=== PATIENT | female | born 1985 | race Caucasian/White ===

== ENCOUNTER 2018-12-25 09:19 | Outpatient (REF) | payer BC, SELFPAY ==
--- NOTE | 2018-12-25 08:30 | PAPFT_PTH ---
PATIENT: Candice Hollis LOC: [facility] U#:[id number] AGE/SX: 33/F ROOM: RE12/25/[address]: GILMA Stewart : 1985 BED: DIS: 12/25/2018 SPEC #: [id number] RECD: 12/25/18 12:24 STATUS: TATI RESantiago #: [id number] RADHA: 12/25/18 08:[address]: Laney Duque DEPT: [facility] Cytology RECD BY: Denisse Rick ENTERED: 12/25/18 12:24 SP TYPE: PAPFT OTHR DR: Jeremiah Hawkins Tissues: 1 - CX/ENDOCX FOR PAP SMEARS Procedures: PAP THIN PREP/UVM Screening HPV DNA PROBE Comments: [id number]
== END 2018-12-25 09:39 ==
LOC: LBN 09:19
PROVIDERS: PCP Internal Medicine; Visit Provider Nurse Practitioner Family
DX: Z12.4 Encounter for screening for malignant neoplasm of cervix (principal); Z11.51 Encounter for screening for human papillomavirus (HPV)
CPT/HCPCS: 88142; 87624

== ENCOUNTER 2019-07-17 17:22 | Outpatient (REF) | payer BC, SELFPAY ==
[2019-07-18 14:54] LABS: Chlamydia Result Negative (Negative); GC Result Negative (Negative); Specimen Description CERVIX
== END 2019-07-17 17:42 ==
LOC: LBN 17:22
PROVIDERS: PCP Internal Medicine; Visit Provider Nurse Practitioner Women's Health
DX: Z11.3 Encounter for screening for infections with a predominantly sexual mode of transmission (principal)
CPT/HCPCS: 87491; 87591

== ENCOUNTER 2021-04-23 14:35 | Emergency (ER) | payer BC, SELFPAY ==
--- NOTE | 2021-04-23 15:15 | DI.RAD_ITS ---
Exam(s) XR FINGER RT INDEX EXAM: XR FINGER RT INDEX CLINICAL HISTORY: contusion tip of finger, r/o fx. TECHNIQUE: 2D digital imaging was performed. COMPARISON: No exams were available for comparison FINDINGS: There is no evidence of fracture or dislocation. No radiopaque foreign body. No osseous lesions nor erosions. IMPRESSION: No significant radiographic findings. DATA REPOSITORY: RADIATION DOSE DELIVERED:
[2021-04-23 15:17] VITALS: BP 113/72; PULSE 99; RESP 16; TEMP 37.2; O2SAT 96
--- NOTE | 2021-04-23 15:17 | ED.GENADUL_ITS ---
Discharge Plan Disposition Patient Disposition: HOME Condition: Stable Discharge Details Clinical Impression: Contusion of finger Primary Care Provider: Jeremiah Hawkins ED Provider: Alvina Dobson Home Meds and New Rx's Prescriptions: Continued Mirena 20 mcg/24 hours (5 yrs) 52 mg intrauterine device 1 device IY ONCE RF: 0 dextroamphetamine-amphetamine [Adderall XR] 25 mg Capsule,Extended Release 24h r 25 mg PO DAILY RF: 0 Discharge Instructions Instructions: Contusion in Adults (ED) Additional Instructions: Your x-ray was negative for fracture. A finger bruise or fracture can be treated the same with a finger splint to help protect it and help with swelling and pain. Alternate tylenol and motrin as needed and directed for pain. Follow-up with your primary care doctor in 1 week as needed and for referral to orthopedics if your symptoms do not improve or worsen. Return to the emergency department with any worsening or new concerning symptoms. Referrals: Alek Davis MD [ [facility] STAFF PHYSICIAN] - Discharge Data Discharge Date/Time-TO BE ENTERED AT DEPARTURE: 04/23/21 16:13 Discharge Physician: Alvina Dobson Medical Decision Making 36-year-old female presents with injury to the tip of her right second finger after attempting to catch a softball last night. There is a contusion and hematoma noted to the right second finger pad as well as a minimal subungual hematoma. There is no deformity. Patient referred for x-rays which were negative. Offered to perform electrocautery to the nail but patient declined. This is reasonable as the subconjunctival hematoma is minimal. Aluminum finger splint was applied. She was given orthopedic follow-up information if needed. Usual and customary return precautions given prior to discharge. Medical Records Medical records reviewed: Yes I reviewed the patient's medical records. Imaging Data Radiologic Study: Radiologist's impression: XR FINGER RT INDEX CLINICAL HISTORY: contusion tip of finger, r/o fx. TECHNIQUE: 2D digital imaging was performed. COMPARISON: No exams were available for comparison FINDINGS: There is no evidence of fracture or dislocation. No radiopaque foreign body. No osseous lesions nor erosions. IMPRESSION: No significant radiographic findings. Lab Data Lab results reviewed: Yes I reviewed the patient's lab results. HPI General Mode of arrival: ambulatory . Date/Time Provider Initiated Documentation: 04/23/21 15:07 . Limitations to Documentation: no limitations . Information obtained by: patient . HPI Narrative: Patient is a 36-year-old female who presents with right second finger injury after jammed on a softball while playing last night. She was standing on the field attempting to catch a ball when the ball directly jammed into the tip of her right second finger. She has been taking medication for pain. She denies any other injury Related Data Home Medications Medication Instructions Recorded Confirmed levonorgestrel 20 mcg/24 hours (6 1 device IY ONCE 12/25/18 07/31/19 yrs) 52 mg intrauterine device dextroamphetamine-amphetamine 25 mg PO DAILY 04/23/21 04/23/21 [Adderall XR] Allergies Allergy/AdvReac Type Severity Reaction Status Date / Time No Known Drug Allergies Allergy Verified 04/23/21 15:21 Review of Systems All systems reviewed & are unremarkable except as noted in HPI and below PFSH Medical History (Updated 04/23/21 @ 16:09 by Alvina Dobson DO) Acne facial IUD surveillance Surgical History (Updated 07/26/18 @ 14:35 [facility] section 2013 Family History Father Hypertension Maternal Grandmother Lung cancer Paternal Grandmother Breast cancer Other Personal history of malignant neoplasm Social History Smoking/Tobacco Use Status: Former Tobacco Use Smoking risk assessment performed?: Yes Alcohol Intake: current Alcohol Intake frequency: a few times a month Substance use type: does not use Female Reproductive History Menstrual control method: progestin IUCD History History 2 Para 1 Hx # Term Pregnancies Multiple births Hx # Pregnancies Ectopic pregnancies AB induced Hx Number of Living Children AB spontaneous Exam Const General: cooperative, healthy appearing and no acute distress HENMT Head: normal to inspection Mouth: oral mucosae normal Eyes General: appearance normal, both eyes and all related structures Neck Neck: normal visual inspection Resp Effort & Inspection: normal respiratory effort and able to speak in complete sentences Cardio Rate: regular rate Skin General skin exam: no rashes or lesions noted Neuro General: patient alert, patient awake and patient oriented x3 Motor: muscle tone normal throughout Extrem Hand/finger images: 1. Mild to moderate edema and ecchymosis noted to the distal finger. There is minimal subungual hematoma. There is no deformity noted. Limited range of motion at DIP due to pain and swelling. Psych Appearance: grossly normal Affect: normal affect Procedures Orthopedic Splinting/Casting Injury #1: Side: right Upper Extremity Injury Location: finger Upper Extremity Immobilizer: finger (other)
== END 2021-04-23 16:13 | disposition home or self-care (01) ==
PROVIDERS: Emergency Provider Physician Assistant; PCP Internal Medicine
DX: S60.021A Contusion of right index finger without damage to nail, initial encounter (principal); W21.07XA Struck by softball, initial encounter
CPT/HCPCS: 29130; 99283; 73140

== ENCOUNTER 2021-05-01 16:15 | Outpatient (REF) | payer BC, SELFPAY ==
[2021-05-03 10:36] LABS: COVID-19 RT-PCR UVMMC Result Negative (Negative)
== END 2021-05-01 16:16 | disposition home or self-care (01) ==
LOC: LBN 16:15
PROVIDERS: PCP Internal Medicine; Visit Provider Physician Assistant Medical
DX: Z20.822 Contact with and (suspected) exposure to COVID-19 (principal); R05 Cough; R09.81 Nasal congestion
CPT/HCPCS: U0003

== ENCOUNTER 2021-08-13 22:19 | Emergency (ER) | payer BC, SELFPAY ==
[2021-08-13] VITALS (58 sets, daily range): BP systolic 109–123; BP diastolic 64–80; PULSE 80–108; RESP 14–23; TEMP 37; O2SAT 98–100
--- NOTE | 2021-08-13 22:15 | RT.EKG_ITS ---
APPROVED REPORT Exam: Resting ECG Reason for Exam: chest pain Patient Location: E HR:85 bpm ECG Measurements Heart Rate 85 AXIS NJ 153 P 79 QRSd 66 QRS 62 QT 360 T 56 QTc 428 Conclusion Sinus rhythm...normal P axis, V-rate 60- 99 Probable left atrial enlargement...P >50mS, <-0.10mV V1 Normal Spring I have reviewed and interpreted ECG and agree with software generated interpretation.
--- NOTE | 2021-08-13 22:30 | DI.RAD_ITS ---
Exam(s) XR CHEST 2V PA LATERAL EXAM: XR CHEST 2V PA LATERAL CLINICAL HISTORY: Chest pain TECHNIQUE: 2D digital imaging was performed. COMPARISON: No exams were available for comparison FINDINGS: MEDIASTINUM: Normal. HEART: Normal. PULMONARY VASCULATURE: Normal. LUNGS: Clear. PLEURAL SPACE: No pleural effusion or pneumothorax. BONE:Unremarkable for age. IMPRESSION: No acute abnormality. DATA REPOSITORY: RADIATION DOSE DELIVERED:
--- NOTE | 2021-08-13 22:49 | ED.GENADUL_ITS ---
Discharge Plan Disposition Patient Disposition: HOME Condition: Stable Discharge Details Clinical Impression: Left-sided chest wall pain Primary Care Provider: Jeremiah Hawkins ED Provider: Ana Abbott Home Meds and New Rx's Prescriptions: No Action Mirena 20 mcg/24 hours (5 yrs) 52 mg intrauterine device 1 device IY ONCE RF: 0 Flonase Sensimist 27.5 mcg/actuation spray,suspension 1 spray intranasal BID RF: 0 cetirizine [Zyrtec] 10 mg tablet 10 mg PO DAILY PRNRF: 0 dextroamphetamine-amphetamine [Adderall XR] 25 mg Capsule,Extended Release 24hr 25 mg PO DAILY RF: 0 Discharge Instructions Instructions: Chest Wall Pain (ED) Additional Instructions: At this time cardiac work-up including EKG, troponin, chest x-ray are all within normal limits. The D-dimer which is lab test we checked for blood clots was also within normal limits. Please take Tylenol or Ibuprofen with food every 4-6 hours as needed for pain and swelling. Follow up with primary care provider in 3-5 days. Return to ED sooner if any worsening or concerns. Increase oral fluids. Referrals: Jeremiah Hawkins MD [Primary Care Provider] - 5 days Discharge Data Discharge Date/Time-TO BE ENTERED AT DEPARTURE: 08/14/21 00:37 Medical Decision Making 36-year-old female presents to the ER with chief complaint of intermittent sharp stabbing left-sided chest pain. She reports first episode began approximately 2 weeks ago which lasted 30 seconds. She reports a dull pain into the left side of chest in between episodes. She reports tonight while she was laying down had an episode lasting approximately 30 minutes. She does report some increased pain with movement, denies any shortness of breath, cough, nausea vomiting diarrhea or any other associated symptoms. She denies any recent long trips in a car plane. She does have an IUD. She does endorse occasional social alcohol use, non-smoker no drugs. She has a past medical history of ADD, family history of lung cancer breast cancer. She denies any cardiac history or family cardiac history. Cardiac work-up including troponin, CBC, CMP, D-dimer, chest x-ray. Patient given 324 mg aspirin p.o. upon arrival. Initial work-up shows no leukocytosis, CMP largely within normal limits, initial troponin less than 0.05. I do suspect pleuritic type chest pain or musculoskeletal in origin. Patient is low risk for cardiac disease, PE ruled out with D-dimer. Chest x-ray at this time shows no evidence for pneumonia or pneumothorax. Imaging protocol: XR of the chest. Views: 2 views. COMPARISON: No relevant prior studies available. FINDINGS: Lungs: Mild chronic interstitial prominence. No consolidation. Pleural spaces: Unremarkable. No pleural effusion. No pneumothorax. Heart/Mediastinum: Unremarkable. No cardiomegaly. Bones/joints: Unremarkable. Nonspecific fluid level in the upper/mid abdomen may be within the distal stomach IMPRESSION: No acute findings. Thank you for allowing us to participate in the care of your patient. Dictated and Authenticated by: Won Shaver MD Discussed results with patient and family who verbalized understanding. Discussed return instructions. Surgeon to follow-up with PCP in the next 3 to 5 days. Insert dragon HPI General Mode of arrival: ambulatory . Date/Time Provider Initiated Documentation: 08/13/21 22:26 . Limitations to Documentation: no limitations . Information obtained by: patient, RN notes reviewed and old records reviewed . HPI Narrative: 36-year-old female presents to the ER with chief complaint of intermittent sharp stabbing left-sided chest pain. She reports first episode began approximately 2 weeks ago which lasted 30 seconds. She reports a dull pain into the left side of chest in between episodes. She reports tonight while she was laying down had an episode lasting approximately 30 minutes. She does report some increased pain with movement, denies any shortness of breath, cough, nausea vomiting diarrhea or any other associated symptoms. She denies any recent long trips in a car plane. She does have an IUD. She does endorse occasional social alcohol use, non-smoker no drugs. She has a past medical history of ADD, family history of lung cancer breast cancer. She denies any cardiac history or family cardiac history. Related Data Home Medications Medication Instructions Recorded Confirmed levonorgestrel 20 mcg/24 hours (7 1 device IY ONCE 12/25/18 07/02/21 yrs) 52 mg intrauterine device dextroamphetamine-amphetamine 25 mg PO DAILY 04/23/21 07/02/21 [Adderall XR] cetirizine 10 mg tablet 10 mg PO DAILY PRN 06/15/21 07/02/21 fluticasone furoate 27.5 1 spray INTRANASAL BID ml 06/15/21 mcg/actuation nasal spray,suspension Allergies Allergy/AdvReac Type Severity Reaction Status Date / Time No Known Drug Allergies Allergy Verified 07/02/21 14:33 General Stated Complaint: Chest Pain SALLY: 2 Review of Systems All systems reviewed & are unremarkable except as noted in HPI and below Cardiovascular Cardiovascular: Denies acrocyanosis, Reports chest pain, Reports chest pain at rest, Reports rapid heart rate, Denies pedal edema, Denies leg edema, Denies radiating jaw, neck or arm pain, Denies dyspnea and Denies dyspnea on exertion Respiratory Respiratory: Denies dyspnea and Denies dyspnea on exertion Gastrointestinal Gastrointestinal: Denies diarrhea, Denies nausea and Denies vomiting ON LICENSE OF [facility] Medical History Acne facial Attention deficit disorder (ADD) in adult Frequent sinus infections IUD surveillance Surgical History section 2013 Family History Father Hypertension Maternal Grandmother Lung cancer Paternal Grandmother Breast cancer Colon cancer Maternal Grandfather Prostate cancer Other Personal history of malignant neoplasm Social History Smoking/Tobacco Use Status: Never Smoking risk assessment performed?: Yes Alcohol Intake: current Alcohol Intake frequency: a few times a week Drug use: Never Substance use type: does not use Do you feel safe at home: Yes Do you feel safe in your relationship?: Yes Female Reproductive History Menstrual control method: progestin IUCD History History 2 Para 1 Hx # Term Pregnancies Multiple births Hx # Pregnancies Ectopic pregnancies AB induced Hx Number of Living Children AB spontaneous Exam Narrative Exam Narrative: Constitutional: Alert and oriented x3. Appears stated age. Normal body habitus. Head: Normocephalic, no trauma. Eyes: Pupils PERRL, Red reflex noted, EOM's intact. Eyelids symmetrical without lesions, discharge, or swelling. ENT: Bilateral TM's WNL, External ear normal to inspection, no mastoid TTP, swelling, or erythema, Nasal turbinates WNL, no nasal discharge. Normal dentition, Posterior pharynx WNL, no exudate. Chest: RRR, Normal S1, S2, distal pulses intact. Resp: Lungs clear to auscultation bilaterally, no wheezes, rales, or rhonchi. Abdomen: Soft, non-distended, Normoactive bowel sounds all 4 quads. Musculoskeletal: Normal gait, 5/5 strength to all four extremities. Skin: No suspicious rashes or lesions. Capillary refill less than 2 sec. Neurologic: Cranial nerves II-XII intact. Alert and oriented x 3. Motor: No deficits noted. Sensory: Intact bilaterally all 4 extremities. Reflexes: DTR's intact bilaterally.. Hematologic/Lymphatic: No ecchymosis, no lymphadenopathy. Course Vital Signs Vital signs: Vital Signs Temperature 37 C 08/13/21 22:24 Pulse 80 08/13/21 22:24 Respiratory Rate 18 08/13/21 22:24 Blood Pressure 121/76 08/13/21 22:24 Pulse Oximetry 98 08/13/21 22:24 Temperature 37 C 08/13/21 22:24 Temperature Source Tympanic 08/13/21 22:24 Pulse 80 08/13/21 22:24 Respiratory Rate 18 08/13/21 22:28 Respiratory Effort 08/13/21 22:28 Respiratory Depth Normal 08/13/21 22:28 Respiratory Pattern Normal 08/13/21 22:28 Blood Pressure 121/76 08/13/21 22:24 Blood Pressure Position Sitting 08/13/21 22:24 Pulse Oximetry 98 08/13/21 22:24 Oxygen Delivery Method Room Air 08/13/21 22:24 Oxygen Flow Rate 0 08/13/21 22:24
[2021-08-13 23:06] LABS: Abs Immature Grans 0.01 10^3/uL (0.0-0.06); Absolute Basophil Count 0.04 10^3/uL (0.0-0.2); Absolute Eosinophil Count 0.05 10^3/uL (0.0-0.7); Absolute Lymphocyte Count 3.05 10^3/uL (1.2-3.4); Absolute Monocyte Count 0.57 10^3/uL (0.1-0.8); Absolute Neutrophil Count 3.47 10^3/uL (1.2-6.7); Basophils % 0.6; Eosinophils % 0.7; HCT 43.9 % (36.0-46.0); HGB 14.3 g/dL (11.2-15.7); Immature Grans % 0.1; Lymphocytes % 42.4; MCH 29.3 pg (27.0-33.0); MCHC 32.6 % (32.0-36.0); MPV 9.7 fL (8.0-11.0); Monocytes % 7.9; Neutrophils % 48.3; Nucleated RBC 0 %; Platelet Count 288 10^3/uL (130-400); RBC 4.88 10^6/uL (3.93-5.22); RDW 11.9 % (11.7-14.6); RDW-SD 39.5 fL; WBC 7.19 10^3/uL (4.4-10.8)
[2021-08-13] MEDS: Aspirin 81 MG CHEW 324 MG CH (23:08)
[2021-08-13 23:23] LABS: ALT 16 U/L (14-59); AST 8 U/L (15-37); Albumin 3.9 g/dL (3.4-5.0); Alkaline Phosphatase 51 U/L (46-116); Anion Gap 7.5 mmol/L (3-11); BUN 15 mg/dL (7-18); Bilirubin, Total 0.4 mg/dL (0.2-1.0); CO2 28.5 mmol/L (21.0-32.0); Calcium 8.8 mg/dL (8.5-10.1); Chloride 105 mmol/L (98-107); Glucose 103 mg/dL (74-106); Magnesium 2.4 mg/dL (1.8-2.4); Potassium 3.7 mmol/L (3.5-5.1); Sodium 141 mmol/L (136-145); Total Protein 6.7 g/dL (6.4-8.2)
[2021-08-13 23:36] LABS: D-Dimer 180 ng/mlFEU (<500)
[2021-08-13 23:45] LABS: Troponin I < 0.05 ng/mL (<0.06)
[2021-08-14] MEDS: Ketorolac 30 MG/ML VIAL IVP (00:11)
[2021-08-14 00:13] VITALS: PULSE 80; RESP 17; O2SAT 100
[2021-08-14 00:20] VITALS: PULSE 84; RESP 18; O2SAT 98
--- NOTE | 2021-08-14 00:22 | DI.VRAD_ITS ---
PROCEDURE INFORMATION: Exam: XR Chest Exam date and time: 08/13/2021 10:42 PM Age: 36 years old Clinical indication: Other: Cp TECHNIQUE: Imaging protocol: XR of the chest. Views: 2 views. COMPARISON: No relevant prior studies available. FINDINGS: Lungs: Mild chronic interstitial prominence. No consolidation. Pleural spaces: Unremarkable. No pleural effusion. No pneumothorax. Heart/Mediastinum: Unremarkable. No cardiomegaly. Bones/joints: Unremarkable. Nonspecific fluid level in the upper/mid abdomen may be within the distal stomach IMPRESSION: No acute findings. Dictated and Authenticated by: Won Shaver MD. Ordering:IVÁN Perez MD
== END 2021-08-14 00:37 | disposition home or self-care (01) ==
PROVIDERS: Emergency Provider Registered Nurse Emergency; PCP Internal Medicine
DX: R07.82 Intercostal pain (principal)
CPT/HCPCS: 36415; 80053; 81025; 93005; 96374; 99285; 71046; 83735; 84484; 85025; 85379; 93010; J1885

== ENCOUNTER 2023-07-11 13:16 | Outpatient (REF) | payer BC, SELFPAY ==
--- NOTE | 2023-07-11 13:00 | PAPFT_PTH ---
PATIENT: Candice Hollis LOC: [facility] U#:[id number] AGE/SX: 38/F ROOM: RE07/11/[address]: Margo Tse NP : 1985 BED: DIS: 07/11/2023 SPEC #: [id number] RECD: 07/11/23 18:21 STATUS: TATI RESantiago #: [id number] RADHA: 07/11/23 13:[address]: Dedrick LEAL,Margo DEPT: [facility] Cytology RECD BY: Vesta Wells ENTERED: 07/11/23 18:22 SP TYPE: PAPFT OTHR DR: Jeremiah Hawkins Tissues: 1 - CX/ENDOCX FOR PAP SMEARS Procedures: PAP THIN PREP/UVM Screening HPV DNA PROBE Comments: [id number]
== END 2023-07-11 13:17 | disposition home or self-care (01) ==
LOC: LBN 13:16
PROVIDERS: PCP Internal Medicine; Visit Provider Nurse Practitioner Women's Health
DX: Z12.4 Encounter for screening for malignant neoplasm of cervix (principal); Z11.51 Encounter for screening for human papillomavirus (HPV)
CPT/HCPCS: 88142; 87624

== ENCOUNTER 2024-05-08 15:51 | Outpatient (REF) | payer BC, SELFPAY ==
[2024-05-09 12:50] LABS: Chlamydia Result Negative (Negative); GC Result Negative (Negative)
== END 2024-05-08 15:52 | disposition home or self-care (01) ==
LOC: LBN 15:51
PROVIDERS: PCP Internal Medicine; Visit Provider Nurse Practitioner Women's Health
DX: N76.0 Acute vaginitis (principal); Z11.3 Encounter for screening for infections with a predominantly sexual mode of transmission
CPT/HCPCS: 87491; 87591; 87480; 87510; 87660

== ENCOUNTER 2024-06-08 21:34 | Emergency (ER) | payer BC, SELFPAY ==
[2024-06-08 21:36] VITALS: BP 140/75; PULSE 80; RESP 18; TEMP 36.5; O2SAT 100
--- NOTE | 2024-06-08 21:48 | ED.GENADUL_ITS ---
Discharge Plan Disposition Patient Disposition: Home Condition: Stable Discharge Details Clinical Impression: Strain of thoracic back region Primary Care Provider: Heladio Rodriguez ED Provider: Ana Abbott Home Meds and New Rx's Prescriptions: New lidocaine 5 % adhesive patch,medicated 1 patch topical DAILY Qty: 15 0RF Rx Instructions: leave on most painful area for up to 12 hrs No Action dextroamphetamine-amphetamine [Adderall] 30 mg tablet 30 mg PO DAILY Mirena 20 mcg/24 hours (5 yrs) 52 mg intrauterine device 1 device IY ONCE Flonase Sensimist 27.5 mcg/actuation spray,suspension 1 spray intranasal BID Rx Instructions: into each nostril cetirizine [Zyrtec] 10 mg tablet 10 mg PO DAILY PRN Discharge Instructions Instructions: Back Exercises, Muscle Strain ED Additional Instructions: Take the Flexeril and oxycodone as directed. Do not operate heavy machinery while taking this medication as it may make you sleepy. Take it with food. Use the lidocaine patches as directed. Alternate ice and heat. Please take Tylenol or Ibuprofen with food every 4-6 hours as needed for pain and swelling. Try massage. You should start feeling better within the next 3 to 5 days. X- rays are within normal limits. Follow up with primary care provider in 3-5 days. Return to ED sooner if any worsening or concerns. Referrals: Heladio Rodriguez MD [Primary Care Provider] - 3 days Discharge Data Discharge Date/Time-TO BE ENTERED AT DEPARTURE: 06/08/24 23:06 HPI General Mode of arrival: ambulatory . Date/Time Provider Initiated Documentation: 06/08/24 21:40 . Limitations to Documentation: no limitations . Information obtained by: patient, RN notes reviewed and old records reviewed . HPI Narrative: 39 year old female presents to the ER with cc of right thoracic back pain that began yesterday while mowing the lawn. 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 Denies any radiation into legs, no loss of bowel or bladder control no numbness or weakness. Radiates around to right ribs. No significant past medical history. Related Data Home Medications ?Medication ?Instructions ?Recorded ?Confirmed levonorgestrel 21 mcg/24 hr (up to 1 device intrauterine ONCE 12/25/18 06/08/24 8 years) 52 mg intrauterine device (Mirena) cetirizine 10 mg tablet (Zyrtec) 10 mg PO DAILY PRN 06/15/21 06/08/24 fluticasone furoate 27.5 1 spray intranasal BID 06/15/21 06/08/24 mcg/actuation nasal spray,suspension (Flonase Sensimist) dextroamphetamine-amphetamine 30 30 mg PO DAILY 07/11/23 06/08/24 mg tablet (Adderall) lidocaine 5 % topical patch 1 patch topical DAILY #15 ea 06/08/24 Previous Rx's ?Medication ?Instructions ?Recorded lidocaine 5 % topical patch 1 patch topical DAILY #15 ea 06/08/24 Allergies Allergy/AdvReac Type Severity Reaction Status Date / Time No Known Allergies Allergy Unverified 06/08/24 21:45 General Stated Complaint: Orthopedic SALLY: 4 Review of Systems All systems reviewed & are unremarkable except as noted in HPI and below Musculoskeletal Musculoskeletal: Reports as per HPI and Reports back pain Exam Narrative Exam Narrative: Constitutional: Alert and oriented x3. Appears stated age. Normal body habitus. Head: Normocephalic, no trauma. Eyes: Pupils PERRL, Red reflex noted, EOM's intact. Eyelids symmetrical without lesions, discharge, or swelling. ENT: Bilateral TM's WNL, External ear normal to inspection, no mastoid TTP, swelling, or erythema, Nasal turbinates WNL, no nasal discharge. Normal dentition, Posterior pharynx WNL, no exudate. Chest: RRR, Normal S1, S2, distal pulses intact. Resp: Lungs clear to auscultation bilaterally, no wheezes, rales, or rhonchi. Abdomen: Soft, non-distended, Normoactive bowel sounds all 4 quads. Musculoskeletal: Normal gait, Moves all 4 extremities without difficulty. Skin: No suspicious rashes or lesions. Capillary refill less than 2 sec. Neurologic: Cranial nerves II-XII intact. Alert and oriented x 3. Motor: No deficits noted. Sensory: Intact bilaterally all 4 extremities. Hematologic/Lymphatic: No ecchymosis, no lymphadenopathy. Back/Spine/Pelvis Cervical Spine: normal cervical lordosis Thoracic/Lumbar Spine: pain with thoraco-lumbar ROM, thoraco-lumbar ROM limited and thoraco-lumbar spasm Course Vital Signs Vital signs: Vital Signs Temperature 36.5 C 06/08/24 21:36 Pulse 80 06/08/24 21:36 Respiratory Rate 18 06/08/24 21:36 Blood Pressure 140/75 06/08/24 21:36 Pulse Oximetry 100 06/08/24 21:36 Temperature 36.5 C 06/08/24 21:36 Temperature Source Oral 06/08/24 21:36 Pulse 80 06/08/24 21:36 Respiratory Rate 18 06/08/24 21:36 Respiratory Effort Normal, Non-Labored 06/08/24 21:38 Blood Pressure 140/75 06/08/24 21:36 Blood Pressure Position Sitting 06/08/24 21:36 Pulse Oximetry 100 06/08/24 21:36 Oxygen Delivery Method Room Air 06/08/24 21:36 Oxygen Flow Rate 0 06/08/24 21:36 Pain Level 8 06/08/24 21:41 Medical Decision Making 39 year old female presents to the ER with cc of right thoracic back pain that began yesterday while mowing the lawn. 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 Denies any radiation into legs, no loss of bowel or bladder control no numbness or weakness. Radiates around to right ribs. No significant past medical history. Chest x-ray ordered to rule out pneumothorax, lidocaine patch, Flexeril and oxycodone 5 mg p.o. ordered. Chest x-ray within normal limits. Will send patient home with Flexeril and oxycodone. Will prescribe lidocaine patches. On patient reevaluation she reports that she is still having pain. Will give 30 mg Toradol IM, instructed on home care follow-up care verbalized understanding. This text was generated using [employer] system, please disregard any oddities of phrase or misspellings. Quality:[facility] Health Related Social Needs: No Data to Display PFSH All Active Problems (Updated 06/08/24 @ 22:44 by Ana Abbott NP) Strain of thoracic back region (Acute) Left-sided chest wall pain (Acute) Recurrent sinusitis (Acute) Attention deficit disorder (ADD) in adult (Acute) Frequent sinus infections (Acute) Contusion of finger (Acute) IUD surveillance (Acute) section (Active 03/23/13) Failure to descend. Medical History Acne facial Surgical History section 2013 Family History Father Hypertension Maternal Grandmother Lung cancer Paternal Grandmother Breast cancer Colon cancer Maternal Grandfather Prostate cancer Other Personal history of malignant neoplasm Social History Smoking/Tobacco Use Status: Never Smoking risk assessment performed?: Yes Alcohol Intake: current Alcohol Intake frequency: a few times a week Drug use: Occasionally Substance use type: marijuana current occupation: [employer], [employer] Sexually active: Yes Current gender identity: female What type of physical activity do you participate in: regular exercise Frequency: 3-4 times per week Do you feel safe at home: Yes Do you feel safe in your relationship?: Yes Female Reproductive History Menstrual control method: progestin IUCD History History 2 Para 1 Hx # Term Pregnancies Multiple births Hx # Pregnancies Ectopic pregnancies AB induced Hx Number of Living Children AB spontaneous
[2024-06-08] MEDS: Cyclobenzaprine 10 MG TAB PO (21:55)
[2024-06-08] MEDS: Lidocaine 5% Patch 1 PATCH TP (21:55)
[2024-06-08] MEDS: oxyCODONE 5 MG TAB PO (21:56)
--- NOTE | 2024-06-08 21:56 | NUR.NOTE ---
Nursing Note: Pt denies , states she does not want a test. Pt state she consents to CXR without preg test.
--- NOTE | 2024-06-08 22:08 | DI.RAD_ITS ---
Exam(s) XR CHEST 2V PA LATERAL EXAM: XR CHEST 2V PA LATERAL CLINICAL HISTORY: Back pain. TECHNIQUE: 2D digital imaging was performed. COMPARISON: CR,XR XR CHEST 2V PA LATERAL from 08/14/2021 FINDINGS: 2 views: Heart size is normal. The mediastinum is not widened. Lungs are clear. No infiltrates nor pleural effusions. IMPRESSION: No acute pulmonary findings. DATA REPOSITORY: RADIATION DOSE DELIVERED:
--- NOTE | 2024-06-08 22:30 | DI.VRAD_ITS ---
PROCEDURE INFORMATION: Exam: XR Chest Exam date and time: 06/08/2024 22:04 Age: 39 years old Clinical indication: Other: Back pain TECHNIQUE: Imaging protocol: Radiologic exam of the chest. Views: 2 views. COMPARISON: CR XR CHEST 2V PA LATERAL 08/14/2021 00:04 FINDINGS: Lungs: No consolidation. Pleural spaces: No pleural effusion. No pneumothorax. Heart/Mediastinum: No cardiomegaly. Bones/joints: No acute fracture. IMPRESSION: No acute cardiopulmonary pathology. Dictated and Authenticated by: Brittney Mcdonough MD. Ordering:IVÁN Perez MD
[2024-06-08] MEDS: Ketorolac 30 MG/ML VIAL IM (22:58)
[2024-06-08] MEDS: Cyclobenzaprine 10 MG TAB, 3 TABS/BTL PO (23:01)
== END 2024-06-08 23:06 | disposition home or self-care (01) ==
PROVIDERS: Emergency Provider Registered Nurse Emergency; PCP Family Medicine
DX: S29.012A Strain of muscle and tendon of back wall of thorax, initial encounter (principal); X50.3XXA Overexertion from repetitive movements, initial encounter; Y93.H2 Activity, gardening and landscaping; Y92.017 Garden or yard in single-family (private) house as the place of occurrence of the external cause
CPT/HCPCS: 96372; 99284; 71046; 99283; J1885

== ENCOUNTER 2025-09-11 11:00 | Outpatient (REF) | payer BC, SELFPAY ==
[2025-09-11 15:51] LABS: Abs Immature Grans 0.01 10^3/uL (0.0-0.06); HCT 43.2 % (36.0-46.0); HGB 13.7 g/dL (11.2-15.7); Immature Grans % 0.2 %; MCH 29.5 pg (27.0-33.0); MCHC 31.7 % (32.0-36.0); MCV 93 fL (80-95); MPV 10.4 fL (8.0-11.0); Platelet Count 295 10^3/uL (130-400); RBC 4.64 10^6/uL (3.93-5.22); RDW 12.2 % (11.7-14.6); RDW-SD 42.1 fL; WBC 6.26 10^3/uL (4.4-10.8)
[2025-09-11 16:14] LABS: TSH (W/Ref FT4) 4.59 uIU/mL (0.55-4.78)
[2025-09-11 16:15] LABS: Ferritin 78 ng/mL (7-271)
[2025-09-11 16:16] LABS: Total Iron Binding Capacity 279 ug/dL (250-425)
[2025-09-11 16:17] LABS: Iron 139 ug/dL (50-170); Transferrin Sat 50 % (15-50)
[2025-09-11 16:54] LABS: ALT 28 U/L (10-49); AST 20 U/L (<34); Albumin 4.2 g/dL (3.2-5.0); Alkaline Phosphatase 59 U/L (46-116); Anion Gap 8.5 mmol/L (3-11); BUN 12 mg/dL (9-23); Bilirubin, Total 0.60 mg/dL (0.2-1.2); CO2 29.5 mmol/L (20.0-31.0); Calcium 9.6 mg/dL (8.3-10.6); Chloride 107 mmol/L (98-107); Cholesterol 170 mg/dL (<200); Glucose 85 mg/dL (74-106); HDL Cholesterol 77 mg/dL (>40); Potassium 4.8 mmol/L (3.5-5.1); Sodium 145 mmol/L (136-145); Total Protein 6.7 g/dL (5.7-8.2)
== END 2025-09-11 11:01 | disposition home or self-care (01) ==
LOC: NCHCN 11:00
PROVIDERS: PCP Family Medicine; Visit Provider Nurse Practitioner Family
DX: R53.83 Other fatigue (principal); Z13.220 Encounter for screening for lipoid disorders
CPT/HCPCS: 80053; 80061; 82728; 83540; 83550; 84443; 85025